=== PATIENT | female | born 1985 | race Two or more races ===

== ENCOUNTER 2024-02-20 19:54 | Emergency (ER) | payer OTHER ==
[~2024-02-20] VITALS: Ht 157.5 cm; Wt 77.3 kg
[2024-02-20] MEDS: BENZOCAINE (DENTAL) 20 % SPRAY 60ML MT ONE (21:16)
[2024-02-20 21:20] VITALS: BP 121/74; PULSE 72; RESP 20; TEMP 98.2; O2SAT 99
[2024-02-20] MEDS ORDERED: IBUP-1456 PO (23:56)
[2024-02-20] MEDS ORDERED: AMOX875T4 PO (23:56)
--- NOTE | 2024-02-20 23:56 | ED.PDOC ---
Eye-HPI HPI Comments 38 year old female presents to ER with complaints of right lower toothache x 4 months. Patient states she broke her right lower 1st molar tooth 4 months ago and has since been experiencing pain localized to this tooth that got worse x1 day prompting her to come to ER for further evaluation. States she does have an appointment with a dentist tomorrow. States she has been taking Tylenol for her pain with slight relief. She rates her current pain a 10/10 to right lower 1st molar tooth without radiation. Patient presents to ER ambulatory on arrival, with steady gait, in no distress. Denies headache, facial swelling/skin changes, fever, n/v or any further symptoms/complaints Chief Complaint: Tooth Pain Time Seen by MD: 20:02 Reviewed Notes: Nurses Notes, Medications, Allergies Allergies: Coded Allergies: NO KNOWN ALLERGIES (Unverified , 02/20/24) Home Meds Active Scripts Ibuprofen (Ibuprofen) 800 Mg Tab, 1 TAB PO TID PRN, #30 TAB 0 Refills Prov:XVAIER DRUMMOND 02/20/24 Amoxicillin & Pot Clavulanate (Amoxicillin/Potassium Cla) 875 Mg Tab, 1 TAB PO BID for 7 Days, #14 TAB 0 Refills Prov:XAVIER DRUMMOND 02/20/24 Information Source: Patient Mode of Arrival: Ambulatory Past Medical History PAST MEDICAL HISTORY: Denies Surgical History: Denies all surgeries BANQUET LEAD History: No Pertinent BANQUET LEAD History Family History Family History: Unknown Social History Smoker: Non-Smoker Alcohol: Denies ETOH Use Drugs: Denies Drug Use Lives In: Home Constitutional: denies: chills, diaphoresis, fatigue, fever, malaise, sweats, weakness, others EENTM: reports: others (As stated in HPI) Respiratory: denies: cough, hemoptysis, orthopnea, SOB at rest, shortness of breath, SOB with excertion, stridor, wheezing, others Cardiovascular: denies: chest pain, dizzy spells, diaphoresis, Dyspnea on exertion, edema, irregular heart beat, left arm pain, lightheadedness, palpitations, PND, syncope, others Gastrointestinal: denies: abdomen distended, abdominal pain, blood streaked bowels, constipated, diarrhea, dysphagia, difficulty swallowing, hematemesis, melena, nausea, poor appetite, poor fluid intake, rectal bleeding, rectal pain, vomiting, others Genitourinary: denies: abnormal vagina bleeding, burning, dyspareunia, dysuria, flank pain, frequency, hematuria, incontinence, pain, , vagina discharge, urgency, others Neurological: denies: dizziness, fainting, headache, left sided numbness, left sided weakness, numbness, paresthesia, pre-existing deficit, right sided numbness, right sided weakness, seizure, speech problems, tingling, tremors, weakness, others Musculoskeletal: denies: back pain, gout, joint pain, joint swelling, muscle pain, muscle stiffness, neck pain, others Integumetry: denies: bruises, change in color, change in hair/nails, dryness, laceration, lesions, lumps, rash, wounds, others Allergic/Immunocompromised: denies: Difficulty Healing, Frequent Infections, Hives, Itching, others Hematologic/Lymphatic: denies: anemia, blood clots, easy bleeding, easy bruising, swollen glands, others Endocrine: denies: excessive hunger, excessive sweating, excessive thirst, excessive urination, flushing, intolerance to cold, intolerance to heat, unexplained weight gain, unexplained weight loss, others Psychiatric: denies: anxiety, bipolar disorder, depression, hopeless, panic disorder, schizophrenia, sleepless, suicidal, others Physical Exam General Appearance: No Apparent Distress, Obese HEENT: PERRL/EOMI, Pharynx Normal, TMs Normal, Other (Broken right lower 1st molar tooth noted with mild surrounding gum swelling/erythema, no bleeding/drainage noted. No facial swelling/skin changes appreciated) Neck: Full Range of Motion, Non-Tender, Normal Respiratory: Chest Non-Tender, Lungs Clear, No Accessory Muscle Use, No Respiratory Distress, Normal Breath Sounds Cardiovascular: No Murmur, No Gallop, Regular Rate/Rhythm Breast Exam: Deferred Gastrointestinal: NOT DONE Genitalia: Deferred Pelvic: Deferred Rectal: Deferred Extremities: Normal capillary refill, Normal range of motion Neurologic: Alert, real estate clerk II-XII nml as Tested, No Motor Deficits, Normal Affect, Normal Mood, No Sensory Deficits Cerebellar Function: Normal Reflexes: Normal Skin: Dry, Normal Color, Warm Lymphatic: No Adenopathy Was a procedure done? Was a procedure done?: No Sedation Sedation?: No EENT DIFF Eye: N/A Mouth: Thrush, Other (Dental abscess, Jeffery's angina) X-Ray, Labs, Meds, VS Vital Signs Date Time Temp Pulse Resp B/P (MAP) Pulse Ox O2 Delivery O2 Flow Rate FiO2 02/20/24 20:51 99 Room Air 0 02/20/24 20:15 98.4 101 18 122/93 (103) 99 Current Medications Medications (Trade) Dose Ordered Sig/Az Route Start Time Stop Time Status Last Admin Benzocaine (Hurricaine [place]) 1 spr ONCE ONCE MT 02/20/24 20:30 02/20/24 20:31 DC 02/20/24 21:16 Hurricane spray ordered, patient educated on proper use/dosage Advised to follow up with PCP and dentist in 1-2 days Patient verbalized understanding and agreeable with current plan of care Advised to return to ER immediately if symptoms worsen Time of 1ST Reevaluation: 23:24 Reevaluation 1ST: N/A Patient Education/Counseling: Diagnosis, Treatment, Prognosis, Need For Follow Up Family Education/Counseling: No Family Present Departure 1 Departure Time of Disposition: 23:52 Impression: Primary Impression: Dental infection Disposition: 01 HOME / SELF CARE / HOMELESS Condition: Stable e-Prescriptions Ibuprofen (Ibuprofen) 800 Mg Tab 1 TAB PO TID PRN, #30 TAB 0 Refills Prov: XAVIER DRUMMOND 02/20/24 Amoxicillin & Pot Clavulanate (Amoxicillin/Potassium Cla) 875 Mg Tab 1 TAB PO BID for 7 Days, #14 TAB 0 Refills Prov: XAVIER DRUMMOND 02/20/24 Discharged With: Self Critical Care Note Critical Care Time?: No Stability Stability form required: No Heart Score Heart Score: Heart Score Response (Comments) Value History N/A 0 EKG N/A 0 Age N/A 0 Risk Factors N/A 0 Troponin N/A 0 Total 0 XAVIER DRUMMOND Feb 20, 2024 23:56
== END 2024-02-21 01:53 | disposition home or self-care (01) ==
LOC: ER 19:54
DX: K04.7 Periapical abscess without sinus (principal); Z79.899 Other long term (current) drug therapy